=== PATIENT | female | born 1975 | race Two or more races ===

== ENCOUNTER → 2019-08-20 | Outpatient (CLI) | payer OTHER | END | disposition home or self-care (01) | LOC: MAMO-SONO 10:15 → SONOGRAMA 10:39 | DX: N84.0 Polyp of corpus uteri (principal); N60.12 Diffuse cystic mastopathy of left breast; N60.11 Diffuse cystic mastopathy of right breast; E66.8 Other obesity ==

== ENCOUNTER 2021-04-06 07:59 | Outpatient (CLI) | payer OTHER | END 2021-04-06 08:02 | disposition home or self-care (01) | LOC: SONOGRAMA 07:59 | PROVIDERS: ATTEND Pathology Anatomic Pathology & Clinical Pathology | DX: E04.1 Nontoxic single thyroid nodule (principal) ==